=== PATIENT | male | born 2000 | race Caucasian/White ===

== ENCOUNTER 2021-06-10 10:43 | Emergency (ER) | payer OTHER, BC, SELFPAY ==
[2021-06-10 10:52] VITALS: BP 114/76; PULSE 94; RESP 18; TEMP 36.4; O2SAT 100
--- NOTE | 2021-06-10 11:11 | ED.URI ---
HPI - URI/Sore Throat General Chief Complaint: Upper Respiratory Infection Stated Complaint: Sinus infection Time Seen by Provider: 06/10/21 10:57 Source: patient and RN notes reviewed Mode of arrival: ambulatory Limitations: no limitations History of Present Illness HPI Narrative: Patient presents today complaining of headache, cough, congestion/sinus pressure, postnasal drip, sore throat. He was diagnosed with COVID-19 1 week ago and states he is still not feeling better. Denies any current fever or shortness of breath. He has been taking Sudafed and NyQuil with mild relief. MD elicited complaint: cough, nasal congestion and sinus pain Related Data Home Medications Medication Instructions Recorded Confirmed No Home Medications 10/29/20 06/10/21 Allergies Allergy/AdvReac Type Severity Reaction Status Date / Time No Known Allergies Allergy Verified 06/10/21 10:48 Review of Systems Review of Systems: CONSTITUTIONAL: Denies fever, chills, or sweats.+ Body aches EYES: Denies visual changes, redness, or discharge. ENT: Denies rhinorrhea, or otalgia.+ Congestion sore throat, postnasal drip, sinus pressure CARDIOVASCULAR: Denies chest pain, palpitations, or edema. RESPIRATORY: Denies dyspnea.+ Cough GASTROINTESTINAL: Denies abdominal pain, nausea, vomiting, or diarrhea. GENITOURINARY: Denies dysuria or hematuria. SKIN: Denies rash, itching, or wounds. MUSCULOSKELETAL: Denies back pain, joint pain, or myalgia. NEUROLOGIC: Denies headache, numbness, tingling, or weakness. PSYCH: Denies depression or anxiety. [facility] Past Medical History Medical History Finger fracture, left Left index finger Healthy adolescent Surgical History Surgical History No history of previous surgery Social History Social History Smoking status: Never smoker Alcohol intake: never Gender identity (if verbalized by the patient): Male Spiritual care concerns: Yes ( Tenriism) Agree to blood products: No Comments At time of signature, I have reviewed and agree with nursing past medical, surgical, social and family history unless otherwise noted. Please see nursing chart for further information. There is no relevant family history pertinent to the presenting complaint Exam Narrative: GENERAL: Mildly ill-appearing, well-nourished, and in no acute distress. HEAD: Normocephalic, atraumatic. EYES: EOMI. No redness or drainage. Conjunctivae normal. ENT: Mucous membranes pink and moist. Nares congested. No rhinorrhea. TMs normal bilaterally. Throat normal. Uvula midline. NECK: Normal AROM. Supple. No lymphadenopathy. CHEST: No respiratory distress. Clear to auscultation. HEART: Regular rate and rhythm. No murmur appreciated. Normal peripheral pulses. EXTREMITIES: Normal range of motion. No edema. SKIN: Warm, dry, no rash. Capillary refill normal. Normal skin turgor. NEURO: No focal deficits. Alert and oriented x3. Gait steady. PSYCH: Normal affect. No signs of depression or anxiety. Course Course Level of Care: Express Care Visit Vital Signs Vital signs: Vital Signs Temperature 97.6 F 06/10/21 10:52 Pulse Rate 94 06/10/21 10:52 Respiratory Rate 18 06/10/21 10:52 Blood Pressure 114/76 06/10/21 10:52 Pulse Oximetry 100 06/10/21 10:52 Temperature 97.6 F 06/10/21 10:52 Pulse Rate 94 06/10/21 10:52 Respiratory Rate 18 06/10/21 10:52 Blood Pressure 114/76 06/10/21 10:52 Pulse Oximetry 100 06/10/21 10:52 Reviewed MDM - URI/Sore Throat Differential Diagnosis Differential diagnosis: Likely upper respiratory infection, sinusitis, viral infection and other (COVID-19) Critical Care Time Critical Care Time Critical Care Time: No Discharge Plan Discharge Clinical Impression: COVID-19 P
== END 2021-06-10 11:19 | disposition home or self-care (01) ==
PROVIDERS: Emergency Provider Nurse Practitioner
DX: U07.1 COVID-19 (principal)
CPT/HCPCS: 99211; G0463

== ENCOUNTER 2023-01-26 13:37 | Emergency (ER) | payer OTHER, SELFPAY ==
[2023-01-26 13:49] VITALS: BP 112/66; PULSE 71; RESP 16; TEMP 36.2; O2SAT 100
--- NOTE | 2023-01-26 14:08 | ED.URI ---
HPI - URI/Sore Throat General Chief Complaint: Upper Respiratory Infection Stated Complaint: Sore/Scratchy Throat Time Seen by Provider: 01/26/23 14:08 Source: patient and RN notes reviewed Mode of arrival: ambulatory Limitations: no limitations History of Present Illness HPI Narrative: 22-year-old male presents with concern for sore throat, runny nose. Reports 2-3 days of symptoms. Reports body aches and general malaise. He denies fever. He denies taking any medications for his symptoms. MD elicited complaint: sore throat Related Data Allergies Allergy/AdvReac Type Severity Reaction Status Date / Time No Known Allergies Allergy Verified 01/26/23 14:05 Review of Systems Review of Systems: CONSTITUTIONAL: Denies chills, sweats, or fever. EYES: Denies visual changes, redness, or discharge. ENT: Reports rhinorrhea, sore throat. Denies congestion, sinus pain, otalgia CARDIOVASCULAR: Denies chest pain, palpitations, or edema. RESPIRATORY: Reports cough. Denies dyspnea. GASTROINTESTINAL: Denies abdominal pain, nausea, vomiting, diarrhea SKIN: Denies rash or itching. MUSCULOSKELETAL: Reports myalgia. NEUROLOGIC: Denies headache. All systems reviewed & are unremarkable except as noted in HPI and below PMFSH Past Medical History Medical History (Updated 01/26/23 @ 14:16 by Anaid Adams NP) Finger fracture, left Left index finger Healthy adolescent History of concussion Surgical History Surgical History No history of previous surgery Family History Family History (Updated 09/28/21 @ 16:40 by KAYA Winchester) Father Hypertension Social History Social History (Updated 09/28/21 @ 16:41 by KAYA Winchester) Smoking status: Never smoker Alcohol intake: current Drinks per week: 2 Substance use: never Living arrangements: with family 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 There is no relevant family history pertinent to the presenting complaint Exam Narrative: GENERAL: Well-appearing, well-nourished, and in no acute distress. HEAD: Normocephalic EYES: PERRLA, conjunctivae clear ENT: Nares clear, turbinates edematous and erythematous, clear discharge. Mucous membranes moist. TM pearly puente with dull light reflex bilaterally; no tragal tenderness. Oropharynx not erythematous without lesions. Tonsils not enlarged and without exudate, no drooling, no hoarseness, no trismus, uvula midline. NECK: Supple. No lymphadenopathy CHEST: Clear to auscultation, breath sounds equal. No wheezing, rhonchi, rales, or stridor. No respiratory distress, speaks in full sentences. HEART: Regular rate and rhythm. No murmur heard. SKIN: Warm, dry, no rash. NEURO: Alert and oriented x3. PSYCH: Normal mood and affect Course Course Emergency Course: Patient is aware of diagnosis, understands and agrees to treatment plan. Anticipatory guidance given. Patient agrees to follow-up as directed and is aware of reasons to seek care at the emergency department. Portions of this record may have been created with voice recognition software Level of Care: Express Care Visit Vital Signs Vital signs: Vital Signs Temperature 97.2 F L 01/26/23 13:49 Pulse Rate 71 01/26/23 13:49 Respiratory Rate 16 01/26/23 13:49 Blood Pressure 112/66 01/26/23 13:49 Pulse Oximetry 100 01/26/23 13:49 Oxygen Delivery Room Air 01/26/23 13:49 Temperature 97.2 F L 01/26/23 13:49 Pulse Rate 71 01/26/23 13:49 Respiratory Rate 16 01/26/23 13:49 Blood Pressure 112/66 01/26/23 13:49 Pulse Oximetry 100 01/26/23 13:49 Oxygen Delivery Room Air 01/26/23 13:49 Rev
== END 2023-01-26 14:24 | disposition home or self-care (01) ==
PROVIDERS: Emergency Provider Nurse Practitioner; PCP Family Medicine
DX: J06.9 Acute upper respiratory infection, unspecified (principal)
CPT/HCPCS: 87081; 87880; 99213; G0463

== ENCOUNTER 2025-02-07 16:52 | Emergency (ER) | payer OTHER, SELFPAY ==
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
--- NOTE | ~2025-02-07 | CT_ITS ---
EXAMINATION: CT BRAIN W/O DATE: 02/07/2025 19:32 INDICATION: TECHNIQUE: Computed tomography (CT) of the head was performed without intravenous contrast. The dose-length product was 681.00 mGy-cm. COMPARISON: No prior studies for comparison. FINDINGS: Normal brain parenchymal volume for age. Normal puente-white differentiation. No acute intracranial hemorrhage, infarction, mass or mass effect. No ventriculomegaly or midline shift. Midline sagittal images demonstrate a normal corpus callosum, craniovertebral junction and sella turcica. Basilar cisterns are patent. Paranasal sinuses and mastoids are pneumatized. No depressed skull fractures. IMPRESSION: 1. No acute intracranial abnormality. Reviewed, dictated and finalized at location O.
--- OUTSIDE RECORDS SUMMARY | 2025-02-07 16:56 | XMS_ITS | Encounter Summary ---
Author Organization [facility] Healthcare Address [address] [place] [address] Care Team Providers Care Hedis Manager Name Role Phone Jade Gordon Primary Care Provider [phone] Reason for Visit * Reason Onset Date Comments Medical Question/Miscellaneous 01/08/2025 Encounter Details Date Type Department Care Team (Late st Contact Info) Description 01/08/2025 Telephone [facility] Family Medicine [address] [phone] Jade Gordon PA [address] [address] Medical Question/Miscellaneous Social History Tobacco Use Types Packs/Day Years Used Date Smoking Tobacco: Never Passive Smoke Exposure: Never Smokeless Tobacco: Never AUDIT-C Answer Date Recorded Q1: How often do you have a drink containing alcohol? 4 or more times a week 12/20/2024 Q2: How many drinks containi ng alcohol do you have on a typical day when you are drinking? 1 or 2 Q3: How often do you have si x or more drinks on one occasion? 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 * Telephone Encounter - Delphine Krishnamurthy - 01/08/2025 8:37 AM CDT Medical Question/Miscellaneous Caller???s Concern: patient states his hemorrhoids aren't improving and he was told to call and maybe referred to a specialist. He is still using the cream, suppositories and taking sitz baths They are not bleeding, they ache Does message need to be routed? Yes-Action Needed documented in this encounter Plan of Treatment Not on file documented as of this encounter Visit Diagnoses Not on filedocumented in this encounter Care Teams Hedis Manager Relationship Specialty Start Date End Date Jade Gordon PA [address] [place] [address] PCP - General Family Medicine 11/29/23 documented as of this encounter
--- OUTSIDE RECORDS SUMMARY | 2025-02-07 16:56 | XMS_ITS | Encounter Summary ---
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 Gender Identity Not on file Sexual Orientation Not on file documented as of this encounter Ordered Prescriptions Prescription Sig Dispense Quantity Refills Last Filled Start Date End Date hydrocortisone-pra moxine (PROCTOFOAM-HC) rectal foamIndications:Pr uritus Ani Insert 1 applicator into the rectum 2 (two) times a day 10 g 1 02/06/2025 documented in this encounter Plan of Treatment Not on file documented as of this encounter Visit Diagnoses Not on filedocumented in this encounter Discontinued Medications Medication Sig Discontinue Reason Start Date End Da te hydrocortisone-pramoxi ne (PROCTOFOAM-HC) rectal foamIndications:Prurit us Ani Insert 1 applicator into the rectum 2 (two) times a day Reorder 01/22/2025 02/06/2025 documented as of this encounter Care Teams Iron Erector Relationship Specialty Start Date End Date Jade Gordon PA [address] [place] [address] PCP - General Family Medicine 11/29/23 documented as of this encounter
--- OUTSIDE RECORDS SUMMARY | 2025-02-07 16:56 | XMS_ITS | Clinical Summary ---
Author Organization [facility] Address [address] [place] [id number] Care Team Providers Care Sliver Lapper Name Role Phone Unavailable Primary Care Provider Unavailabl e Allergies No known active allergies Medications No known medications Active Problems No known active problems Encounters Date Type Department Care Team Description 11/13/2024 External Device Data [facility] ABSTRACTION Provider, Abstract from Last 3 Months Immunizations Immunization Administration Dates Next Due INFLUENZA VACCINE QUADRIVALENT 3 YR UP PF IM 04/2022 Family History Medical History Relation Name Comments Hypertension Father No Known Problems Mother Relation Name Status Comments Father Mother Social History Tobacco Use Types Packs/Day Years Used Date Smoking Tobacco: Never Smokeless Tobacco: Never Tobacco Cessation:Counseling Given: Not Answered Alcohol Use Standard Drinks/Week Comments Yes 6 (1 standard drink = 0.6 oz pur e alcohol) Sex and Gender Information Value Date Recorded Sex Assigned at Not on file Legal Sex Male 11:26 AM CDT Gender Identity Not on file Sexual Orientation Not on file Last Filed Vital Signs Vital Sign Reading Time Taken Comments Blood Pressure 100/70 09/03/2022 8:23 AM CDT Pulse 72 09/03/2022 8:23 AM CDT Temperature 36.4 C (97.6 F) 09/03/2022 8:23 AM CDT Respiratory Rate 18 09/03/2022 8:23 AM CDT Oxygen Saturation 98% 09/03/2022 8:23 AM CDT Inhaled Oxygen Concentration - - Weight 82.6 kg (182 lb) 09/03/2022 8:23 AM CDT Height 177.8 cm (5' 10) 09/03/2022 8:23 AM CDT Body Mass Index 26.11 09/03/2022 8:23 AM CDT Plan of Treatment Health Maintenance Due Date Last Done Comments HPV VACCINES (1 - Male 3-dose series) 02/06/2015 DTAP/TDAP/TD VACCINES (1 - Tdap) 02/06/2019 HEPATITIS B VACCINES (1 of 3 - 19+ 3-dose series) 01/28 INFLUENZA VACCINE (#1) 2024 03/10/2022 Insurance * Guarantor: [employer]) Account Type Relation to Patient Date of Phone Billing Address Corporate Employer ATTN: PAULINO MERA [address] [address] [employer] * Guarantor: [id number] Account Type Relation to Patient Date of Phone Billing Address Workers Comp Employer [address] [address] [employer]
--- OUTSIDE RECORDS SUMMARY | 2025-02-07 16:56 | XMS_ITS | Encounter Summary ---
Author Organization [facility] Healthcare Address [address] [place] [address] Care Team Providers Care Frame Gate Mortiser Operator Name Role Phone Jade Gordon Primary Care Provider [phone] Reason for Visit * Reason Onset Date Comments Med Refill 01/22/2025 Encounter Details Date Type Department Care Team (Late st Contact Info) Description 01/22/2025 Telephone [facility] Medical Group Family Medicine [address] [phone] Jade Gordon PA [address] [address] Med Refill Social History Tobacco Use Types Packs/Day Years [...] on file 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
--- OUTSIDE RECORDS SUMMARY | 2025-02-07 16:56 | XMS_ITS | Clinical Summary ---
Author Organization [address] Address [address] [place] [phone] Care Team Providers Care Sociology Teacher Name Role Phone Jade Gordon Primary Care Provider [phone] [phone] Allergies No known active allergies Medications hydrocortisone 2.5 % creamIndication s:bug bites Apply topically 2 (two) times a day 30 g 01/24/20 24 Active testosterone cypionate (DEPO-TESTOTERO NE) 200 mg/mL injection ADMINISTER 0.5 ML IN THE MUSCLE WEEKLY 05/16/20 24 Active BD Luer-Jem Syringe 3 mL 18 x 1 1/2 syringe USE 1 SYRINGE DIRECTED WEEKLY 03/22/20 24 Active lidocaine HCl-hydrocortis on ac 3-0.5 % cream Apply 1 g topically 2 (two) times a day as needed (for rectal pain) 28 g 12/21/19 25 Active hydrocortisone (ANUSOL-HC) 25 mg suppository Insert 1 suppository (25 mg total) into the rectum 2 (two) times a day as needed for hemorrhoids 30 suppository 1 02/06/20 25 Active hydrocortisone- pramoxine (PROCTOFOAM-HC) rectal foamIndications :Pruritus Ani Insert 1 applicator into the rectum 2 (two) times a day 10 g 1 02/07/20 25 Active hydrocortisone (ANUSOL-HC) 25 mg suppository Insert 1 suppository (25 mg total) into the rectum 2 (two) times a day as needed for hemorrhoids 30 suppository 1 12/21/19 25 025 Discontin ued(Reord er) hydrocortisone- pramoxine (PROCTOFOAM-HC) rectal foamIndications :Pruritus Ani Insert 1 applicator into the rectum 2 (two) times a day 10 g 1 01/23/20 025 Discontin ued(Reord er) hydrocortisone (ANUSOL-HC) 25 mg suppository Insert 1 suppository (25 mg total) into the rectum 2 (two) times a day as needed for hemorrhoids 30 suppository 1 01/23/20 025 Discontin ued(Thera py completed ) Active Problems Problem Noted Date Diagnosed Date Internal and external hemorrhoids without compli cation 12/20/2024 Encounters Date Type Department Care Team Description 02/06/2025 Orders Only [address] [phone] Jade Gordon PA 02/05/[address] [phone] Jade Gordon PA Medication Request 01/23/[address] [phone] Jade Gordon PA Prior Auth Request for Proctofoam 01/22/2025 Orders Only [address] [phone] Jade Gordon PA 01/22/[address] [phone] Jade Gordon PA Med Refill 01/22/[address] [phone] Jade Gordon PA Symptom Based Call 01/08/2025 Letter (Out) [address] [phone] 01/08/2025 Orders Only [facility] [address] [phone] Jade Gordon PA Internal and external hemorrhoids without complication (Primary Dx) 01/08/[address] [phone] Jade Gordon PA Medical Question/Miscellaneou s 12/20/2024 3:00 PM CDT Office Visit [address] [phone] Jade Gordon PA Internal and external hemorrhoids without complication (Primary Dx) 12/19/[address] [phone] Jade Gordon PA Symptom Based Call from Last 3 Months Immunizations Immunization Administration Dates Next Due Influenza, Quadrivalent, Spl it, Preservative Free, Intramuscular 03/10/2022,03/24/2020 Influenza, Unspecified 09/04/2024(Deferr ed: Patient Refused),02/28/2024,02/27/2023 Surgical History Surgery Date Site/Laterality Comments SHOULDER SURGERY Left Repair torn shoulder Medical History Medical History Date Comments Biceps muscle tear, left, initial encounter Acetabular labrum tear, left, initial encounter Family History Medical History Relation Name Comments No Known Problems Brother Hypertension Father No Known Problems Maternal Grandfather No Known Problems Maternal Grandmother No Known Problems Mother No Known Problems Paternal Grandfather No Known Problems Paternal Grandmother No Known Problems Sister Relation Name Status Comments Brother Alive Father Alive Maternal Grandfather Alive Maternal Grandmother Alive Mother Alive Paternal Grandfather Alive Paternal Grandmother Alive Sister Alive Social History Tobacco Use Types Packs/Day Years Used Date Smoking Tobacco: Never Passive Smoke Exposure: Never Smokeless Tobacco: Never Tobacco Cessation:Counseling Given: Not Answered AUDIT-C Answer Date Recorded Q1: How often do you have a drink containing alcohol? 4 or more times a week 12/20/2024 Q2: How many drinks containi ng alcohol do you have on a typical day when you are drinking? 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 Gender Identity Not on file Sexual Orientation Not on file Obstetrics History Last Filed Vital Signs Vital Sign Reading Time Taken Comments Blood Pressure 102/60 12/20/2024 2:49 PM CDT Pulse 87 12/20/2024 2:49 PM CDT Temperature 36.8 C (98.2 F) 12/20/2024 2:49 PM CDT Respiratory Rate 16 12/20/2024 2:49 PM CDT Oxygen Saturation 98% 12/20/2024 2:49 PM CDT Inhaled Oxygen Concentration - - Weight 74.4 kg (164 lb) 12/20/2024 2:49 PM CDT Height 180.3 cm (5' 11) 12/20/2024 2:49 PM CDT Body Mass Index 22.87 12/20/2024 2:49 PM CDT Plan of Treatment Health Maintenance Due Date Last Done Comments Hepatitis C Screening 2000 DTaP/Tdap/Td Vaccine (1 - Tdap) 02/06/2011 Varicella Vaccines (1 of 2 - 13+ 2-dose series) 02/06/2013 HPV Vaccines (1 - Male 3-dose series) 02/06/2015 Hepatitis B Screening 02/06/2018 Regular Well Visit/Exam 18-64 02/06/2018 Covid-19 Vaccine ( - season) 2025 09/14/2020, 08/24/2020 Influenza Vaccine (#1) 2025 , 02/27/2023, 03/10/2022, Additional history exists Depression Screening 12/20/2025 12/20/2024, 06/01/2024, 11/30/2023, Additional history exists Pneumococcal vaccine <65 Aged Out No longer eligible based on patient's age to complete this topic Insurance [employer] Care Teams Sociology Teacher Relationship Specialty Start Date End Date Jade Gordon PA [facility] [address] [place] [address] PCP - General Family Medicine 11/29/23
--- OUTSIDE RECORDS SUMMARY | 2025-02-07 16:56 | XMS_ITS | Encounter Summary ---
Author Organization [facility] Healthcare Address [address] [place] [address] Care Team Providers Care Control Board Operator Name Role Phone Jade Gordon Primary Care Provider [phone] Reason for Visit * Reason Onset Date Comments Medication Request 02/05/2025 Encounter Details Date Type Department Care Team (Late st Contact Info) Description 02/05/2025 Telephone [facility] Medical Group Family Medicine [address] [phone] Jade Gordon PA [address] [address] Medication Request Social History Tobacco Use Types Packs/Day Years [...] on file 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 * Telephone Encounter - Lakeshia Doshi - 02/05/2025 9:48 AM CDT Medication Question/Clarification Medication Name(s)/Dose: hydrocortisone (ANUSOL-HC) 25 mg suppository What is the question or clarification needed? Patient is asking if there is an additional medication he can take with the medication above to help with inflammation. If needed, Pharmacy(s) medication(s) should be sent to: On file, [facility] Additional Comments: N/A Does message need to be routed? Yes-Action Needed documented in this encounter Plan of Treatment Not on file documented as of this encounter Visit Diagnoses Not on filedocumented in this encounter Care Teams Control Board Operator Relationship Specialty Start Date End Date Jade Gordon PA [address] [place] [address] PCP - General Family Medicine 11/29/23 documented as of this encounter
[2025-02-07 17:34] VITALS: BP 122/73; PULSE 88; RESP 16; TEMP 37.1; O2SAT 100
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
[2025-02-07] MEDS: IBUPROFEN 400 MG TABLET 800 MG PO (19:12)
[2025-02-07] MEDS: ACETAMINOPHEN 500 MG TABLET 1000 MG PO (19:12)
--- OUTSIDE RECORDS SUMMARY | 2025-02-07 19:39 | XMS_ITS | Clinical Summary ---
Author Organization [address] Address [address] [place] [address] Care Team Providers Care Information Systems Administrator Name Role Phone Jade Gordon Primary Care Provider [phone] [phone] Allergies No known active allergies Medications hydrocortisone [...] Department Care Team Description 02/06/2025 Orders Only [address] [phone] Jade Gordon PA 02/05/[address] [phone] Jade Gordon PA Medication Request 01/23/[address] [phone] Jade Gordon PA Prior Auth Request for Proctofoam 01/22/2025 Orders Only [address] [phone] Jade Gordon PA 01/22/[address] [phone] Jade Gordon PA Med Refill 01/22/[address] [phone] Jade Gordon PA Symptom Based Call 01/08/2025 Letter (Out) [address] [phone] 01/08/2025 Orders Only [facility] [address] [phone] Jade Gordon PA Internal and external hemorrhoids without complication (Primary Dx) 01/08/[address] [phone] Jade Gordon PA Medical Question/Miscellaneou s 12/20/2024 3:00 PM CDT Office Visit [address] [phone] Jade Gordon PA Internal and external hemorrhoids without complication (Primary Dx) 12/19/[address] [phone] Jade Gordon PA Symptom Based [...] on file 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
--- OUTSIDE RECORDS SUMMARY | 2025-02-07 19:39 | XMS_ITS | Encounter Summary ---
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
--- OUTSIDE RECORDS SUMMARY | 2025-02-07 19:39 | XMS_ITS | Encounter Summary ---
Author Organization [facility] Healthcare Address [address] [place] [address] Care Team Providers Care Continuity Director Name Role Phone Jade Gordon Primary Care Provider [phone] Reason for Visit * Reason Onset Date Comments Medical Question/Miscellaneous 01/08/2025 Encounter Details Date Type Department Care Team (Late st Contact Info) Description 01/08/2025 Telephone [facility] Family Medicine [address] [phone] Jade Gordon PA [address] [address] Medical Question/Miscellaneous Social History Tobacco [...] on file 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
--- OUTSIDE RECORDS SUMMARY | 2025-02-07 19:39 | XMS_ITS | Clinical Summary ---
Author Organization [facility] Address [address] [place] [id number] Care Team Providers Care Survey Supervisor Name Role Phone Unavailable Primary Care Provider [...] (#1) 2024 03/10/2022 Insurance * Guarantor: [employer]) Account Type Relation to Patient Date of Phone Billing Address Corporate Employer ATTN: PAULINO MERA [address] [address] [employer] * Guarantor: [id number] CALL Account Type Relation to Patient Date of Phone Billing Address Workers Comp Employer [address] [address] [employer]
--- OUTSIDE RECORDS SUMMARY | 2025-02-07 19:39 | XMS_ITS | Encounter Summary ---
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
[2025-02-07 20:05] VITALS: BP 139/79; PULSE 66; RESP 14; TEMP 36.5; O2SAT 97
== END 2025-02-07 20:07 | disposition home or self-care (01) ==
PROVIDERS: Emergency Provider Emergency Medicine
DX: S16.1XXA Strain of muscle, fascia and tendon at neck level, initial encounter (principal); V89.2XXA Person injured in unspecified motor-vehicle accident, traffic, initial encounter
CPT/HCPCS: 70450; 72125; 72131; 99284; A9270